=== PATIENT | male | born 1985 | race Caucasian/White ===

== ENCOUNTER 2017-12-26 10:34 | Emergency (ER) | payer OTHER, SELFPAY ==
[2017-12-26 10:38] VITALS: BP 135/90; PULSE 78; RESP 20; TEMP 36.6; O2SAT 100
--- NOTE | 2017-12-26 11:36 | ED.EYEPROB ---
HPI - Eye Problem General Chief complaint: Eye Problems Stated complaint: fingernail stuck in eyeball Time Seen by Provider: 12/26/17 10:42 Source: patient Mode of arrival: ambulatory Limitations: no limitations History of Present Illness HPI Narrative: 32-year-old nonsmoking male presents with a chief complaint a right eye injury suffered yesterday. His daughter was playing with him when her finger accidentally poked him in the right eye. He denies any bleeding or discharge. He denies any change in visual acuity. He denies the use of contacts and is otherwise well chief complaint: eye pain Onset (ago): hour(s) Onset description: sudden Duration: constant Location: right eye Eye Symptoms: burning and redness Place: home Mechanism: direct trauma Severity: mild If Pain, Quality: sharp Associated symptoms: none Treatments Prior to Arrival: none Related Data Patient tetanus UTD: Yes Home Medications Medication Instructions Recorded Confirmed chlorthalidone 12.5 mg PO DAILY 12/26/17 12/26/17 Previous Rx's Medication Instructions Recorded sulfacetamide sodium 1 drop EYE-RIGHT Q4H 7 Days #5 ml 12/26/17 Allergies Allergy/AdvReac Type Severity Reaction Status Date / Time No Known Drug Allergies Allergy Verified 12/26/17 10:38 Review of Systems Review of Systems All systems reviewed & are unremarkable except as noted in HPI and below Constitutional Denies chills, Denies fever(s), Denies lethargy and Denies weakness Eyes Denies change in vision, Denies eye discharge, Reports irritation and Denies loss of vision ENT Ears, Nose, Mouth, and Throat: Denies change in voice, Denies neck pain and Denies sore throat Cardiovascular Denies chest pain, Denies irregular heart rhythm, Denies lightheadedness, Denies palpitations, Denies dyspnea, Denies dyspnea on exertion and Denies orthopnea Respiratory Denies cough, Denies dyspnea, Denies dyspnea on exertion and Denies wheezing Gastrointestinal Gastrointestinal: Denies abdominal pain, Denies change in bowel habits, Denies diarrhea, Denies nausea and Denies vomiting Genitourinary Denies hematuria, Denies flank pain, Denies urinary incontinence and Denies urinary urgency Musculoskeletal Denies neck pain Integumentary/Breasts Denies pruritus, Denies erythema, Denies rash and Denies wounds Neurologic Denies confusion, Denies loss of vision and Denies weakness Psychiatric Denies anxiety, Denies confusion, Denies depression, Denies homicidal ideation and Denies suicidal ideation Endocrine Denies palpitations Hematologic/Lymphatic Denies easy bruising Allergic/Immunologic Denies wheezing PFSH Social History Smoking Status: Never smoker Exam Narrative Exam Narrative: GEN: AOx3 and in mild distress EYES: Pupils are equal, round, and reactive to light and accommodation. Extraoccular muscles are intact bilaterally. Right high scleral injection. Proparacaine instilled and then visualize with fluorescein under UV light and there is a corneal abrasion noted at the 9 o'clock position of the right without any foreign body noted. Patient had a complete resolution of symptoms after proparacaine CHEST: Lungs are clear to auscultation bilaterally and free of wheezes, rales, or rhonchi. Heart rate is regular rhythm, there are no murmurs, clicks, rubs, or gallops. There is no chest wall tenderness. ABD: Abdomen is soft and nontender. There is no guarding or rebound. Bowel sounds are normal in all 4 quadrants. There is no mass or organomegaly. EXT: Full painless ROM of all extremities with no loss of sensation or strength. SKIN: Warm, pink, and dry. No erythema or rash Initial Vital Signs Initial Vital Signs: Vital Signs Temperature 97.8 F 12/26/17 10:38 Pulse Rate 78 12/26/17 10:38 Respiratory Rate 20 12/26/17 10:38 Blood Pressure 135/90 12/26/17 10:38 Pulse Oximetry 100 12/26/17 10:38 Course Vital Signs - 8 hr 12/26/17 10:38 12/26/17 11:44 Temperature 97.8 F Pulse Rate 78 80 Respiratory Rate 20 20 Blood Pressure 135/90 128/93 H Pulse Oximetry 100 100 Discharge Plan Departure Patient Disposition: Home Clinical Impression: Abrasion, corneal Discharge Date/Time: 12/26/17 11:44 Interventions: ED Discharge Assessment Last Done: 12/26/17 11:44 Instructions: DI for Corneal Abrasion Activity Restrictions/Additional Instructions: *You have been diagnosed with [ Acute R corneal abrasion ] *What to do: *Take medications as directed: Your prescription has been electronically [facility] to [facility] at [facility] request *Follow up with your primary care provider in 2-3 days, call for an appointment. Let them know you were seen in the Emergency Department and that we ask that you be seen in follow up *Return to ER if you should have any new, worsening or concerning symptoms Prescriptions: New sulfacetamide sodium 10 % drops 1 drop EYE-RIGHT Q4H 7 Days Qty: 5 RF: 0 No Action chlorthalidone 25 mg tablet 12.5 mg PO DAILY RF: 0 Referrals: Mary Myrick [Primary Care Provider] -
[2017-12-26 11:44] VITALS: BP 128/93; PULSE 80; RESP 20; O2SAT 100
== END 2017-12-26 11:44 | disposition home or self-care (01) ==
PROVIDERS: Emergency Provider Emergency Medicine; PCP Physician Assistant Medical
DX: S05.01XA Injury of conjunctiva and corneal abrasion without foreign body, right eye, initial encounter (principal); W50.0XXA Accidental hit or strike by another person, initial encounter
CPT/HCPCS: 99283

== ENCOUNTER 2019-01-08 09:52 | Emergency (ER) | payer OTHER, SELFPAY ==
[2019-01-08 09:54] VITALS: BP 142/89; PULSE 82; RESP 16; TEMP 37.2; O2SAT 98
[2019-01-08 10:07] VITALS: BP 142/89; PULSE 82; RESP 16; TEMP 37.2; O2SAT 98
--- NOTE | 2019-01-08 10:08 | DI.RAD.S_ITS ---
PROCEDURE: XR CHEST 2V INDICATIONS: Cough and fever evaluate for pneumonia TECHNIQUE: 2 views of the chest were acquired. COMPARISON: CXR 09/21/2009. FINDINGS: Surgical changes and devices: None. Lungs and pleura: Lungs are clear. No pleural effusions or pneumothorax. Mediastinum: Mediastinal contours are normal and unchanged. Heart size is normal. Bones and chest wall: No suspicious bony abnormalities. Soft tissues appear unremarkable. IMPRESSION: No consolidation to suggest pneumonia. Dictated by: Rasta Husain M.D. on 01/08/2019 at 10:47 Approved by: Rasta Husain M.D. on 01/08/2019 at 10:48
--- NOTE | 2019-01-08 10:16 | ED_ITS ---
HPI - General Adult General Chief complaint: Upper Respiratory Symptoms Stated complaint: Coughing,Green [place] and [place]. Time Seen by Provider: 01/08/19 10:07 Source: patient Mode of arrival: Ambulatory Limitations: no limitations History of Present Illness HPI narrative: Otherwise healthy 33-year-old male here for evaluation approximately 4 weeks of fevers that have been controlled with Motrin and a productive cough and wheezing. Patient states he has been doing ibuprofen and Tylenol for the past 4 weeks for this. He states that his productive cough has been going on for 4 weeks. Has had chills and body aches. Approximately 2 days prior to the onset of symptoms he did travel to [place]. No chest pain. Related Data Home Medications Medication Instructions Recorded Confirmed chlorthalidone 12.5 mg PO DAILY 12/26/17 12/26/17 Previous Rx's Medication Instructions Recorded azithromycin See Rx Instructions .ROUTE 01/08/19 .COMPLEX #6 tab ibuprofen 800 mg PO Q8H PRN #60 tab 01/08/19 Allergies Allergy/AdvReac Type Severity Reaction Status Date / Time No Known Drug Allergies Allergy Verified 01/08/19 10:31 Review of Systems Constitutional Constitutional: Reports chills and Reports fever(s) Cardiovascular Cardiovascular: Denies chest pain and Reports dyspnea Respiratory Respiratory: Reports cough, Reports dyspnea and Reports wheezing Gastrointestinal Gastrointestinal: Denies abdominal pain, Denies nausea and Denies vomiting Musculoskeletal Musculoskeletal: Denies myalgias and Denies arthralgias Integumentary/Breasts Skin/Breast: Denies lesions and Denies rash Neurologic Neurologic: Denies behavioral changes Psychiatric Psychiatric: Denies behavioral changes Hematologic/Lymphatic Hematologic/Lymphatic: Denies easy bleeding and Denies easy bruising Allergic/Immunologic Allergic/Immunologic: Reports wheezing Patient History Medical History Healthy adult (Acute) Social History Smoking Status: Never smoker alcohol intake frequency: a few times a week Substance Use Type: does not use Exam Initial Vital Signs Initial Vital Signs: Vital Signs Temperature 99.0 F 01/08/19 09:54 Pulse Rate 82 01/08/19 09:54 Respiratory Rate 16 01/08/19 09:54 Blood Pressure 142/89 H 01/08/19 09:54 Pulse Oximetry 98 01/08/19 09:54 Const General: cooperative, comfortable and well developed Orientation: alert, awake and oriented x3 Chest Chest: normal inspection of the chest Resp Effort & Inspection: normal respiratory effort, cough, not labored and no retractions Auscultation: clear to auscultation bilaterally Cardio Rate: regular rate Rhythm: regular rhythm Skin Lesions: no lesions Rashes: no rashes Neuro General: alert, awake and oriented x3 Cognition: normal cognition Speech: speech normal Extrem General: normal to inspection and capillary refill normal Psych Appearance: grossly normal and well kempt Course Orders Ordered: ED Orders 01/08/19 10:08 XR chest 2V Stat Vital Signs Vital signs: Vital Signs - 8 hr 01/08/19 09:54 01/08/19 10:07 Temperature 99.0 F 99.0 F Pulse Rate 82 82 Respiratory Rate 16 16 Blood Pressure 142/89 H Blood Pressure [Right Arm] 142/89 H Pulse Oximetry 98 98 Medical Decision Making Imaging Data Chest x-ray: Radiologist's impression: [address] [address] XRay Report Signed Patient: Sudheer Pop [facility]#: [id number] : 1985Acct:[id number] Age/Sex: 33 / MDate of Service: 01/08/19 Loc: ED Accession Number: [id number] Procedure: XR chest 2V Ordering Provider: Patrice Vallejo D.O. PROCEDURE: XR CHEST 2V INDICATIONS: Cough and fever evaluate for pneumonia TECHNIQUE: 2 views of the chest were acquired. COMPARISON: CXR 09/21/2009. FINDINGS: Surgical changes and devices: None. Lungs and pleura: Lungs are clear. No pleural effusions or pneumothorax. Mediastinum: Mediastinal contours are normal and unchanged. Heart size is normal. Bones and chest wall: No suspicious bony abnormalities. Soft tissues appear unremarkable. IMPRESSION: No consolidation to suggest pneumonia. Dictated by: Rasta Husain M.D. on 01/08/2019 at 10:47 Approved by: Rasta Husain M.D. on 01/08/2019 at 10:48 [facility] Narrative Medical decision making narrative: Patient not in any respiratory distress. Has a low-grade fever however he has been on antipyretics. Does have a productive cough. Chest x-ray shows no definitive pneumonia however he has had 4 weeks of symptoms. I do feel was unreasonable to treat him as an atypical pneumonia and discharged him with antibiotics. We did discuss cough and cold preparations [id number]. We discussed return precautions. He expressed understanding and agreement plan. Discharge Plan Departure Patient Disposition: Home Clinical Impression: Atypical pneumonia Instructions: DI for Atypical Pneumonia Activity Restrictions/Additional Instructions: Take the antibiotics as directed. Return to the emergency department for any new or worsening symptoms Prescriptions: New azithromycin 250 mg tablet See Rx Instructions .ROUTE .COMPLEX Qty: 6 RF: 0 ibuprofen 800 mg tablet 800 mg PO Q8H PRN (Reason: pain) Qty: 60 RF: 0 No Action chlorthalidone 25 mg tablet 12.5 mg PO DAILY RF: 0 Referrals: Mary Myrick [Primary Care Provider] -
[2019-01-08 11:16] VITALS: BP 147/81; PULSE 74; RESP 18; O2SAT 97
== END 2019-01-08 11:20 | disposition home or self-care (01) ==
PROVIDERS: Emergency Provider Emergency Medicine; PCP Physician Assistant Medical
DX: J18.9 Pneumonia, unspecified organism (principal)
CPT/HCPCS: 71046; 99282; 99283

== ENCOUNTER 2019-11-06 11:06 | Emergency (ER) | payer OTHER, SELFPAY ==
[2019-11-06 11:17] VITALS: BP 166/100; PULSE 84; RESP 18; TEMP 36.7; O2SAT 97
--- NOTE | 2019-11-06 11:47 | ED.URI ---
HPI - URI/Sore Throat <GIULIANO Atkinson-BC - Last Filed: 11/06/19 12:44> General Chief Complaint: Upper Respiratory Symptoms Stated Complaint: sore throat,neckpain/ear pain,nausea,headache Time Seen by Provider: 11/06/19 11:20 Source: patient Mode of arrival: Family Vehicle Limitations: no limitations History of Present Illness HPI Narrative: The patient is a 34-year-old male current smoker with history of low testosterone who presents with a chief complaint of sore throat radiating to his ear and neck. This is been going on since Saturday, he had 2 days of metallic taste in his mouth with dentist currently gotten better. He denies any cough or shortness of breath. He has slight nausea today. He got coated testing from [facility] when his kids need to be retested to go back to school and states he tested negative on Saturday. [facility], he states that they gave him cough drops but did nothing else. He presents because he still has a sore throat. Otherwise he took ibuprofen yesterday. No fever. Eating and drinking well. Continuing to vape. No known sick contacts. Related Data Home Medications Medication Instructions Recorded Confirmed chlorthalidone 12.5 mg PO DAILY 12/26/17 12/26/17 Previous Rx's Medication Instructions Recorded azithromycin See Rx Instructions .ROUTE 01/08/19 .COMPLEX #6 tab ibuprofen 800 mg PO Q8H PRN #60 tab 01/08/19 ketorolac 10 mg PO TID PRN #15 tab 11/06/19 Allergies Allergy/AdvReac Type Severity Reaction Status Date / Time No Known Drug Allergies Allergy Verified 11/06/19 11:22 Review of Systems <THOM Atkinson - Last Filed: 11/06/19 12:44> Review of Systems Narrative: GENERAL: Denies chills, fatigue, malaise, fever, sweats. HEENT: See HPI RESPIRATORY: See HPI CARDIOVASCULAR: Denies chest pain, palpitations, orthopnea, edema, GASTROINTESTINAL: See HPI : Denies dysuria, frequency, incontinence, hematuria, urinary retention. MUSCULOSKELETAL: denies weakness, joint pain, or bony pain SKIN: Denies rash, skin lesions, or other NEUROLOGIC: Denies weakness, headache, numbness, change in speech, confusion, seizures, incoordination. PSYCHIATRIC: No concerning psychosocial issues. 12 point review of systems is negative except for those stated above Patient History <THOM Atkinson - Last Filed: 11/06/19 12:44> Medical History (Updated 11/06/19 @ 12:41 by THOM Atkinson) Healthy adult (Acute) Social History Smoking Status: Current every day smoker Smoking Status: Current every day smoker tobacco type: vaping alcohol intake frequency: a few times a week Alcohol type: beer and hard liquor Substance Use Type: does not use Exam <THOM Atkinson - Last Filed: 11/06/19 12:44> Narrative Exam Narrative: GENERAL: This is a well-nourished, well-developed patient, in no acute distress HEAD: Atraumatic. Normocephalic. No temporal or scalp tenderness. EYES: Pupils equal round and reactive. Extraocular motions intact. No scleral icterus. No injection or drainage. ENT: Nose without bleeding, purulent drainage or septal hematoma. Throat with erythema, but no tonsillar hypertrophy or exudate. Uvula midline. Airway patent. Bilateral TMs pearly mei. Bilateral ear canals within normal limits. NECK: Trachea midline. Slight anterior bilateral lymphadenopathy noted, no posterior lymphadenopathy a. Supple, nontender, no meningeal signs. CARDIOVASCULAR: Regular rate and rhythm RESPIRATORY: Clear to auscultation. Breath sounds equal bilaterally. No wheezes, rales, or rhonchi. No cough. No increased respiratory effort. No accessory muscle use. GASTROINTESTINAL: Abdomen soft, non-tender, nondistended. No hepato-splenomegaly, or palpable masses. No guarding. EXTREMITIES: No clubbing, cyanosis, or edema. No joint tenderness, effusion, or edema noted. BACK: Nontender without deformity or crepitance. No flank tenderness. NEURO: AOx3. SKIN: No rash or erythema. Initial Vital Signs Initial Vital Signs: Vital Signs Temperature 98.0 F 11/06/19 11:17 Pulse Rate 84 11/06/19 11:17 Respiratory Rate 18 11/06/19 11:17 Blood Pressure 166/100 H 11/06/19 11:17 Pulse Oximetry 97 11/06/19 11:17 <Mitul Yanes MD - Last Filed: 11/06/19 18:21> Initial Vital Signs Initial Vital Signs: Vital Signs Temperature 98.0 F 11/06/19 11:17 Pulse Rate 84 11/06/19 11:17 Respiratory Rate 18 11/06/19 11:17 Blood Pressure 166/100 H 11/06/19 11:17 Pulse Oximetry 97 11/06/19 11:17 Scores <THOM Atkinson - Last Filed: 11/06/19 12:44> GCS [place] coma scale eye opening: Spontaneous [place] coma scale verbal response: Orientated [place] coma scale motor response: Obey commands [place] coma scale total score: 15 Course <THOM Atkinson - Last Filed: 11/06/19 12:44> Orders Ordered: ED Orders 11/06/19 11:55 Throat Culture Stat Discontinued Medications Ketorolac Tromethamine (Toradol) 60 mg IM NOW ONE Stop: 11/06/19 12:10 Last Admin: 11/06/19 12:18 Dose: 60 mg Documented by: POLINA Vital Signs Vital signs: Vital Signs - 8 hr 11/06/19 11:17 11/06/19 12:53 Temperature 98.0 F Pulse Rate 84 78 Respiratory Rate 18 16 Blood Pressure 166/100 H 141/88 H Pulse Oximetry 97 97 <Mitul Yanes MD - Last Filed: 11/06/19 18:21> Orders Ordered: ED Orders 11/06/19 11:55 Throat Culture Stat Discontinued Medications Ketorolac Tromethamine (Toradol) 60 mg IM NOW ONE Stop: 11/06/19 12:10 Last Admin: 11/06/19 12:18 Dose: 60 mg Documented by: POLINA Vital Signs Vital signs: Vital Signs - 8 hr 11/06/19 11:17 11/06/19 12:53 Temperature 98.0 F Pulse Rate 84 78 Respiratory Rate 18 16 Blood Pressure 166/100 H 141/88 H Pulse Oximetry 97 97 MDM - URI/Sore Throat <THOM Atkinson - Last Filed: 11/06/19 12:44> Differential Diagnosis Differential diagnosis: Likely upper respiratory infection, otitis media, viral infection and pharyngitis Lab Data Labs: Point of Care Testing Rapid Strep A Negative MDM Narrative Medical decision making narrative: The patient is a 34-year-old male who presents with a chief complaint of a sore throat for a few days. He was seen and evaluated by [facility] yesterday. Today he test negative for strep. He has recently tested negative for coronavirus but also does not have any fever shortness of breath or cough. He feels much improved after the above-stated therapies, and I discussed sitting in a prescription of ketorolac and not combining with any other NSAIDs. We do have a throat culture pending and I discussed that we will call him in 2-3 days if anything comes up on those results. Encouraged follow-up with primary care provider in the next few days and coming back to the ER for acute concerns such as inability keep down fluids etcetera. Patient appears very well and nontoxic throughout his stay in the emergency department, hemodynamically stable and afebrile. <Mitul Yanes MD - Last Filed: 11/06/19 18:21> Lab Data Labs: Point of Care Testing Rapid Strep A Negative Discharge Plan Departure Patient Disposition: Home Clinical Impression: Pharyngitis Qualifiers: Pharyngitis/tonsillitis etiology: unspecified etiology Qualified Code(s): J02.9 - Acute pharyngitis, unspecified Discharge Date/Time: 11/06/19 12:54 Instructions: DI for Viral Pharyngitis Activity Restrictions/Additional Instructions: Thank you for trusting us with your care today I am sorry your feeling poorly and wish you a speedy recovery Today you tested negative for strep throat. We did take a throat culture to see if anything else develops. We will call you if something grows from throat culture. Please follow-up with primary care provider in the next few days. I sent a prescription of Toradol or ketorolac to [facility] I have given you a prescription of Toradol. This is an NSAID. Do not combine it with other NSAIDs such as Aleve or ibuprofen. I suggest taking it with some food, as it can irritate your stomach. As discussed please come back to the emergency department for any acute concerns such as inability keep down fluids etcetera Prescriptions: New ketorolac 10 mg tablet 10 mg PO TID PRN (Reason: pain) Qty: 15 RF: 0 No Action azithromycin 250 mg tablet See Rx Instructions .ROUTE .COMPLEX Qty: 6 RF: 0 ibuprofen 800 mg tablet 800 mg PO Q8H PRN (Reason: pain) Qty: 60 RF: 0 chlorthalidone 25 mg tablet 12.5 mg PO DAILY RF: 0 Referrals: Mary Myrick [Primary Care Provider] - <Mitul Yanes MD - Last Filed: 11/06/19 18:21> Cosign ED Attending Cosaniyaature Attestation: I was immediately available in the department for consultation. This documentation has been reviewed and I agree with assessment and plan. Supervised by Mitul Yanes MD
[2019-11-06] MEDS: KETOROLAC 60 MG/2 ML VIAL IM (12:18)
[2019-11-06 12:53] VITALS: BP 141/88; PULSE 78; RESP 16; O2SAT 97
== END 2019-11-06 12:54 | disposition home or self-care (01) ==
PROVIDERS: Emergency Provider Nurse Practitioner Family; PCP Physician Assistant Medical
DX: J02.9 Acute pharyngitis, unspecified (principal); R11.0 Nausea
CPT/HCPCS: 87070; 87077; 87880; 96372; 99283; J1885

== ENCOUNTER 2019-11-07 15:40 | Emergency (ER) | payer OTHER, SELFPAY ==
[2019-11-07 15:47] VITALS: BP 179/94; PULSE 86; RESP 16; TEMP 36.9; O2SAT 97; BMI 31.8
--- NOTE | 2019-11-07 16:06 | ED_ITS ---
HPI - URI/Sore Throat <SCOT AtkinsonBC - Last Filed: 11/07/19 17:23> General Chief Complaint: Upper Respiratory Symptoms Stated Complaint: States Step, Hard to Breath, White Spots on Throat Time Seen by Provider: 11/07/19 15:44 Source: patient Mode of arrival: Ambulatory Limitations: no limitations History of Present Illness HPI Narrative: The patient is a 34-year-old male current vapor with history of low testosterone who presents with a chief complaint of continued sore throat. For 4 days and feels as though it is getting worse and he thinks he has strep. He had a negative coronavirus test last week at [facility] and seen by myself in this emergency department yesterday. He denies any fevers nausea vomiting or diarrhea. He is eating and drinking well. He states that since yesterday he started having white drainage from the back of his throat. He tested negative for strep yesterday and a throat culture is pending. The patient states that he feels tired, but denies any muscle aches or chills. Related Data Home Medications Medication Instructions Recorded Confirmed chlorthalidone 12.5 mg PO DAILY 12/26/17 12/26/17 Previous Rx's Medication Instructions Recorded azithromycin See Rx Instructions .ROUTE 01/08/19 .COMPLEX #6 tab ibuprofen 800 mg PO Q8H PRN #60 tab 01/08/19 ketorolac 10 mg PO TID PRN #15 tab 11/06/19 amoxicillin 875 mg PO BID #20 tab 11/07/19 prednisone 40 mg PO DAILY 5 Days #10 tab 11/07/19 Allergies Allergy/AdvReac Type Severity Reaction Status Date / Time No Known Drug Allergies Allergy Verified 11/06/19 11:22 Review of Systems <THOM Atkinson - Last Filed: 11/07/19 17:23> Review of Systems Narrative: GENERAL: See HPI HEENT: See HPI RESPIRATORY: Denies dyspnea, cough, wheezing, hemoptysis, sputum. CARDIOVASCULAR: Denies chest pain, palpitations, orthopnea, edema, GASTROINTESTINAL: Denies nausea, vomiting, abdominal pain, diarrhea, constipation, melena. : Denies dysuria, frequency, incontinence, hematuria, urinary retention. MUSCULOSKELETAL: denies weakness, joint pain, or bony pain SKIN: Denies rash, skin lesions, or other NEUROLOGIC: Denies weakness, headache, numbness, change in speech, confusion, seizures, incoordination. PSYCHIATRIC: No concerning psychosocial issues. 12 point review of systems is negative except for those stated above Patient History <THOM Atkinson - Last Filed: 11/07/19 17:23> Medical History Healthy adult (Acute) Social History Smoking Status: Current every day smoker Smoking Status: Current every day smoker tobacco type: vaping alcohol intake frequency: a few times a week Alcohol type: beer and hard liquor Substance Use Type: does not use Exam <THOM Atkinson - Last Filed: 11/07/19 17:23> Narrative Exam Narrative: GENERAL: This is a well-nourished, well-developed patient, no acute distress HEAD: Atraumatic. Normocephalic. No temporal or scalp tenderness. EYES: Pupils equal round and reactive. Extraocular motions intact. No scleral icterus. No injection or drainage. ENT: Nose without bleeding, purulent drainage or septal hematoma. Throat with erythema and bilateral tonsillar exudate, no hypertrophy noted. Uvula midline. Airway patent. Bilateral TMs pearly mei. No abnormality bilaterally NECK: Trachea midline. Anterior lymphadenopathy bilaterally, no posterior lymphadenopathy. Supple, nontender, no meningeal signs. CARDIOVASCULAR: Regular rate and rhythm without murmurs, gallops, or rubs. RESPIRATORY: Clear to auscultation. Breath sounds equal bilaterally. No wheezes, rales, or rhonchi. GASTROINTESTINAL: Abdomen soft, non-tender, nondistended. No hepato- splenomegaly, or palpable masses. No guarding. Active bowel sounds all 4 quadrants. EXTREMITIES: Using all extremities equally. NEURO: AOx3. SKIN: No rash or erythema on visible skin Initial Vital Signs Initial Vital Signs: Vital Signs Temperature 98.5 F 11/07/19 15:47 Pulse Rate 86 11/07/19 15:47 Respiratory Rate 16 11/07/19 15:47 Blood Pressure 179/94 H 11/07/19 15:47 Pulse Oximetry 97 11/07/19 15:47 <Glenn Heart DO - Last Filed: 11/08/19 07:24> Initial Vital Signs Initial Vital Signs: Vital Signs Temperature 98.5 F 11/07/19 15:47 Pulse Rate 86 11/07/19 15:47 Respiratory Rate 16 11/07/19 15:47 Blood Pressure 179/94 H 11/07/19 15:47 Pulse Oximetry 97 11/07/19 15:47 Scores <THOM Atkinson - Last Filed: 11/07/19 17:23> GCS Grecia coma scale eye opening: Spontaneous [place] coma scale verbal response: Orientated Grecia coma scale motor response: Obey commands Grecia coma scale total score: 15 Course <THOM Atkinson - Last Filed: 11/07/19 17:23> Orders Ordered: ED Orders 11/07/19 16:02 COVID19 -ED/INPAT/OR/L&D Stat Vital Signs Vital signs: Vital Signs - 8 hr 11/07/19 15:47 11/07/19 16:46 Temperature 98.5 F Pulse Rate 86 69 Respiratory Rate 16 18 Blood Pressure 179/94 H 159/80 H Pulse Oximetry 97 97 <Glenn Heart DO - Last Filed: 11/08/19 07:24> Orders Ordered: ED Orders 11/07/19 16:02 COVID19 -ED/INPAT/OR/L&D Stat Vital Signs Vital signs: Vital Signs - 8 hr 11/07/19 15:47 11/07/19 16:46 Temperature 98.5 F Pulse Rate 86 69 Respiratory Rate 16 18 Blood Pressure 179/94 H 159/80 H Pulse Oximetry 97 97 MDM - URI/Sore Throat <THOM Atkinson - Last Filed: 11/07/19 17:23> Differential Diagnosis Differential diagnosis: Likely upper respiratory infection Lab Data Labs: Lab Results 11/07/19 Range/Units 16:02 COVID-19 PCR Negative (Negative) Point of Care Testing Rapid Strep A Negative MDM Narrative Medical decision making narrative: The patient is a 34-year-old male who presents with continued sore throat. There is a throat culture pending, has not resulted yet. The patient tests negative for strep a, though given his exam including peritonsillar exudate, I will start him on amoxicillin twice a day. I discussed at length taking this with probiotic or yogurt. Steroids also initiated. Patient declines anything for nausea, denies any chest pain or shortness of breath, has negative coronavirus test today. I encouraged him to follow up with primary care provider in the next few days, come back to the ER for acute concerns such as abdominal fever, inability keep down fluids, concern of heart attack or stroke. Patient has no questions or concerns upon discharge and states understanding return precautions as well as follow-up care. <Glenn Heart DO - Last Filed: 11/08/19 07:24> Lab Data Labs: Lab Results 11/07/19 Range/Units 16:02 COVID-19 PCR Negative (Negative) Point of Care Testing Rapid Strep A Negative Discharge Plan Departure Patient Disposition: Home Clinical Impression: Acute bacterial pharyngitis Discharge Date/Time: 11/07/19 16:46 Instructions: DI for Pharyngitis/Tonsillopharyngitis -- Adult Activity Restrictions/Additional Instructions: Thank you for trusting us with your care today. I am sorry that you are continuing to feel poorly and wish you a speedy recovery. I sent 2 prescriptions to [facility] on [email or web address]. One is an antibiotic given the change in your exam and the other is a steroid to help decrease inflammation and pain. As discussed, please take a probiotic or yogurt with the antibiotic. Please follow-up with primary care provider in the next few days. Please come back to the emergency department for any acute concerns such as abdominal pain with fever, concern of heart attack or stroke, inability keep down fluids Prescriptions: New prednisone 20 mg tablet 40 mg PO DAILY 5 Days Qty: 10 RF: 0 amoxicillin 875 mg tablet 875 mg PO BID Qty: 20 RF: 0 No Action azithromycin 250 mg tablet See Rx Instructions .ROUTE .COMPLEX Qty: 6 RF: 0 ibuprofen 800 mg tablet 800 mg PO Q8H PRN (Reason: pain) Qty: 60 RF: 0 ketorolac 10 mg tablet 10 mg PO TID PRN (Reason: pain) Qty: 15 RF: 0 chlorthalidone 25 mg tablet 12.5 mg PO DAILY RF: 0 Referrals: Mary Myrick [Primary Care Provider] - <Glenn Heart DO - Last Filed: 11/08/19 07:24> Cosign ED Attending Cosignature Attestation: I was immediately available in the department for consultation. This documentation has been reviewed and I agree with assessment and plan. Supervised by Glenn Heart, DO
[2019-11-07 16:25] LABS: COVID19 -Nasal RAPID Negative (Negative)
[2019-11-07 16:46] VITALS: BP 159/80; PULSE 69; RESP 18; O2SAT 97
== END 2019-11-07 16:46 | disposition home or self-care (01) ==
PROVIDERS: Emergency Provider Nurse Practitioner Family; PCP Physician Assistant Medical
DX: J02.8 Acute pharyngitis due to other specified organisms (principal)
CPT/HCPCS: 87635; 87880; 99282

== ENCOUNTER 2019-11-08 09:52 | Emergency (ER) | payer OTHER, SELFPAY ==
[2019-11-08 10:02] VITALS: BP 158/91; PULSE 91; RESP 18; TEMP 36.6; O2SAT 97; BMI 31.8
--- NOTE | 2019-11-08 10:03 | ED_ITS ---
HPI - URI/Sore Throat General Chief Complaint: Upper Respiratory Symptoms Stated Complaint: Throat issues since Saturday Time Seen by Provider: 11/08/19 09:53 Source: patient Mode of arrival: Ambulatory Limitations: no limitations History of Present Illness HPI Narrative: 34-year-old male nonsmoker with noncontributory medical history returns due to ongoing difficulty in swallowing due to throat pain. He has had multiple visits, initially at presentation was consistent with viral pharyngitis, he had negative strep swabs and yesterday was started on amoxicillin. He has had 2 doses of the amoxicillin but did not take the prednisone which was also prescribed. He feels fatigued and has a poor appetite. He denies any measured fever, chest pain or shortness of breath. MD Complaint: sore throat Onset (ago): day(s) Duration: constant Severity: moderate Relieving factors: nothing Exacerbating factors: swallowing Able to tolerate fluids by mouth: Yes Associated symptoms: denies other symptoms Treatments prior to arrival: acetaminophen, ibuprofen and antibiotics Related Data Home Medications Medication Instructions Recorded Confirmed chlorthalidone 12.5 mg PO DAILY 12/26/17 12/26/17 Previous Rx's Medication Instructions Recorded azithromycin See Rx Instructions .ROUTE 01/08/19 .COMPLEX #6 tab ibuprofen 800 mg PO Q8H PRN #60 tab 01/08/19 ketorolac 10 mg PO TID PRN #15 tab 11/06/19 amoxicillin 875 mg PO BID #20 tab 11/07/19 prednisone 40 mg PO DAILY 5 Days #10 tab 11/07/19 Allergies Allergy/AdvReac Type Severity Reaction Status Date / Time No Known Drug Allergies Allergy Verified 11/08/19 10:06 Review of Systems Constitutional Constitutional: Denies chills, Denies fatigue, Denies fever(s), Denies frequent falls, Denies lethargy and Denies weakness Eyes Eyes: Denies change in vision, Denies eye discharge, Denies irritation and Denies loss of vision ENT Ears, Nose, Mouth, and Throat: Denies change in voice, Denies dizziness, Denies neck pain, Reports sore throat and Denies throat swelling Cardiovascular Cardiovascular: Denies chest pain, Denies irregular heart rhythm, Denies lightheadedness, Denies palpitations, Denies dyspnea, Denies dyspnea on exertion and Denies orthopnea Respiratory Respiratory: Denies cough, Denies dyspnea, Denies dyspnea on exertion and Denies wheezing Gastrointestinal Gastrointestinal: Denies abdominal pain, Denies change in bowel habits, Denies diarrhea, Denies nausea and Denies vomiting Musculoskeletal Musculoskeletal: Denies neck pain and Denies numbness Integumentary/Breasts Skin/Breast: Denies pruritus, Denies erythema, Denies rash and Denies wounds Neurologic Neurologic: Denies behavioral changes, Denies confusion, Denies dizziness, Denies frequent falls, Denies loss of vision, Denies numbness and Denies weakness Psychiatric Psychiatric: Denies anxiety, Denies behavioral changes, Denies confusion, Denies depression, Denies homicidal ideation and Denies suicidal ideation Endocrine Endocrine: Denies fatigue, Denies flushing and Denies palpitations Hematologic/Lymphatic Hematologic/Lymphatic: Denies easy bruising Allergic/Immunologic Allergic/Immunologic: Denies urticaria, Denies throat swelling and Denies wheezing Patient History Medical History Healthy adult (Acute) Social History Smoking Status: Current every day smoker Smoking Status: Current every day smoker tobacco type: vaping alcohol intake frequency: a few times a week Alcohol type: beer and hard liquor Substance Use Type: does not use Exam Narrative Exam Narrative: GENERAL: [34] year old patient appears stated age. Well-nouris hed, well-developed patient, in mild distress. HEAD: Atraumatic. Normocephalic. EYES: Pupils equal round and reactive. Extraocular motions intact. No scleral icterus. No injection or drainage. ENT: Nose without bleeding, purulent drainage. Moderate posterior pharyngeal erythema, but no tonsillar hypertrophy or exudate. Airway patent. NECK: Trachea midline. Left eanterior node tender to palpation. No obvious or significant swelling CARDIOVASCULAR: Regular rate and rhythm without murmurs, gallops, or rubs. RESPIRATORY: Clear to auscultation. Breath sounds equal bilaterally. No wheezes, rales, or rhonchi. GASTROINTESTINAL: Abdomen soft, non-tender, nondistended. EXTREMITIES: No edema or joint tenderness. BACK: Nontender without deformity or crepitance. No flank tenderness. NEURO: AOx3. SKIN: No rash or erythema of visible areas Initial Vital Signs Initial Vital Signs: Vital Signs Temperature 97.8 F 11/08/19 10:02 Pulse Rate 91 H 11/08/19 10:02 Respiratory Rate 18 11/08/19 10:02 Blood Pressure 158/91 H 11/08/19 10:02 Pulse Oximetry 97 11/08/19 10:02 Course Course Course Narrative: Patient feeling much better after above-stated therapies. Viral cultures sent, return precautions given. Questions answered to apparent satisfaction Orders Ordered: ED Orders 11/08/19 11:05 Basic Metabolic Panel Stat C-Reactive Protein Quant Stat Complete Blood Count AUTO DIFF Stat Discontinued Medications Dexamethasone (Decadron) 10 mg IV NOW ONE Stop: 11/08/19 10:42 Last Admin: 11/08/19 11:16 Dose: 10 mg Documented by: LUISA Sodium Chloride (Normal Saline 0.9%) 1,000 mls @ 1,000 mls/hr IV BOLUS ONE Stop: 11/08/19 11:40 Last Infusion: 11/08/19 12:45 Dose: 0 mls/hr Documented by: Admin: 11/08/19 11:15 Dose: 1,000 mls/hr Documented by: LUISA Ampicillin Sodium/Sulbactam (Sodium 3 gm/ Sodium Chloride) 100 mls @ 100 mls/hr IV NOW ONE Stop: 11/08/19 10:51 Last Infusion: 11/08/19 12:45 Dose: 0 mls/hr Documented by: Admin: 11/08/19 11:15 Dose: 100 mls/hr Documented by: LUISA Sodium Chloride (Normal Saline 0.9%) 1,000 mls @ 1,000 mls/hr IV BOLUS ONE Stop: 11/08/19 13:51 Last Infusion: 11/08/19 13:59 Dose: 0 mls/hr Documented by: Admin: 11/08/19 12:57 Dose: 1,000 mls/hr Documented by: SETH Ketorolac Tromethamine (Toradol) 15 mg IV NOW ONE Stop: 11/08/19 10:51 Last Admin: 11/08/19 11:16 Dose: 15 mg Documented by: LUISA Vital Signs Vital signs: Vital Signs - 8 hr 11/08/19 10:02 11/08/19 11:32 11/08/19 13:56 Temperature 97.8 F 99.0 F Pulse Rate 91 H 80 83 Respiratory Rate 18 12 Blood Pressure 158/91 H 141/91 H 127/68 Pulse Oximetry 97 96 96 11/08/19 14:16 Temperature Pulse Rate 79 Respiratory Rate 12 Blood Pressure 139/78 Pulse Oximetry 96 MDM - URI/Sore Throat Lab Data Result diagrams: 11/08/19 11:05 11/08/19 11:05 Labs: Lab Results 11/08/19 11/08/19 Range/Units 11:05 11:05 WBC 6.1 (4.5-11.0) X10^3/uL RBC 5.26 (4.5-5.9) X10^6/uL Hgb 16.6 (13.5-17.5) g/dL Hct 47.8 (41-53) % MCV 90.9 (80-100) fL MCH 31.6 (26-34) PG MCHC 34.8 (30-36) % RDW 12.8 (11.6-14.8) % Plt Count 172 (150-400) X10^3/uL Neut % (Auto) 70.2 (50-75) % Lymph % (Auto) 19.1 L (25-40) % [place] % (Auto) 9.5 (3-14) % Eos % (Auto) 0.7 L (2-4) % Baso % (Auto) 0.5 (0-2) % Neut # (Auto) 4300 (0611-7100) /uL Lymph # (Auto) 1200 (3453-7655) /uL [place] # (Auto) 600 (0-900) /uL Eos # (Auto) 0 (0-450) /uL Baso # (Auto) 0 (0-100) /uL Sodium 140 (137-145) mmol/L Potassium 4.6 (3.4-5.1) mmol/L Chloride 104 (98-107) mmol/L Carbon Dioxide 31 (22-32) mmol/L BUN 11 (9-20) mg/dL Creatinine 1.02 (0.66-1.25) mg/dL Estimated GFR > 60.0 (>60) mL/min BUN/Creatinine Ratio 10.8 (6-22) Glucose 102 H (70-100) mg/dL Calcium 9.3 (8.4-10.2) mg/dL C-Reactive Protein < 0.5 (<1.0) mg/dL Discharge Plan Departure Patient Disposition: Home Clinical Impression: Pharyngitis Qualifiers: Pharyngitis/tonsillitis etiology: unspecified etiology Qualified Code(s): J02.9 - Acute pharyngitis, unspecified Discharge Date/Time: 11/08/19 14:18 Instructions: DI for Pharyngitis/Tonsillopharyngitis -- Adult Activity Restrictions/Additional Instructions: *You have been diagnosed with [acute pharyngitis] *What to do: *Take medications as directed. Drink plenty of fluids. GET REST. *Follow up with your primary care provider in 2-3 days, call for an appointment. Let them know you were seen in the Emergency Department and that we ask that you be seen in follow up *Return to ER if you should have any new, worsening or concerning symptoms Prescriptions: No Action azithromycin 250 mg tablet See Rx Instructions .ROUTE .COMPLEX Qty: 6 RF: 0 ibuprofen 800 mg tablet 800 mg PO Q8H PRN (Reason: pain) Qty: 60 RF: 0 ketorolac 10 mg tablet 10 mg PO TID PRN (Reason: pain) Qty: 15 RF: 0 chlorthalidone 25 mg tablet 12.5 mg PO DAILY RF: 0 prednisone 20 mg tablet 40 mg PO DAILY 5 Days Qty: 10 RF: 0 amoxicillin 875 mg tablet 875 mg PO BID Qty: 20 RF: 0 Referrals: Mary Myrick [Primary Care Provider] -
[2019-11-08 11:14] LABS: Add Manual Diff / Slide Review NO; Basophils Absolute Auto 0 /uL (0-100); Basophils Percent Auto 0.5 % (0-2); Eosinophils Absolute Auto 0 /uL (0-450); Eosinophils Percent Auto 0.7 % (2-4); Hematocrit 47.8 % (41-53); Hemoglobin 16.6 g/dL (13.5-17.5); Lymphocytes Absolute Auto 1200 /uL (1100-4500); Lymphocytes Percent Auto 19.1 % (25-40); Mean Corpuscular HGB Conc 34.8 % (30-36); Mean Corpuscular Hemoglobin 31.6 PG (26-34); Mean Corpuscular Volume 90.9 fL (80-100); Monocytes Absolute Auto 600 /uL (0-900); Monocytes Percent Auto 9.5 % (3-14); Neutrophils Absolute Auto 4300 /uL (1500-7000); Neutrophils Percent Auto 70.2 % (50-75); Platelet Count 172 X10^3/uL (150-400); Red Blood Cell Count 5.26 X10^6/uL (4.5-5.9); Red Cell Distribution Width 12.8 % (11.6-14.8); White Blood Cell Count 6.1 X10^3/uL (4.5-11.0)
[2019-11-08] MEDS: SODIUM CHLORIDE 0.9% 1,000 ML 1000 ML IV ×2 (11:15→12:57)
[2019-11-08] MEDS: AMPICILLIN/SULBACTAM 3 GM 3 GM in SODIUM CHLORIDE 0.9% 100 ML IV (11:15)
[2019-11-08] MEDS: DEXAMETHASONE 10 MG/ML VIAL IV (11:16)
[2019-11-08] MEDS: KETOROLAC 60 MG/2 ML VIAL 15 MG IV (11:16)
[2019-11-08 11:26] LABS: BUN Creatinine Ratio 10.8 (6-22); Blood Urea Nitrogen 11 mg/dL (9-20); Calcium 9.3 mg/dL (8.4-10.2); Carbon Dioxide 31 mmol/L (22-32); Chloride 104 mmol/L (98-107); Estimated Glomerular Filt Rate > 60.0 mL/min (>60); Glucose 102 mg/dL (70-100); HEMOLYSIS 20 (0-50); Potassium 4.6 mmol/L (3.4-5.1); Sodium 140 mmol/L (137-145)
[2019-11-08 11:27] LABS: C-Reactive Protein Quant < 0.5 mg/dL (<1.0)
[2019-11-08 11:32] VITALS: BP 141/91; PULSE 80; RESP 12; TEMP 37.2; O2SAT 96
[2019-11-08 13:56] VITALS: BP 127/68; PULSE 83; O2SAT 96
[2019-11-08 14:16] VITALS: BP 139/78; PULSE 79; RESP 12; O2SAT 96
== END 2019-11-08 14:18 | disposition home or self-care (01) ==
PROVIDERS: Emergency Provider Emergency Medicine; PCP Physician Assistant Medical
DX: J02.9 Acute pharyngitis, unspecified (principal)
CPT/HCPCS: 36415; 80048; 85025; 86140; 87252; 96361; 96365; 96366; 96375; 99284; J0295; J1100; J1885

== ENCOUNTER 2019-11-10 00:42 | Emergency (ER) | payer OTHER, SELFPAY ==
[2019-11-10 00:48] VITALS: BP 171/94; PULSE 81; RESP 16; TEMP 37.4; O2SAT 97; BMI 31.8
--- NOTE | 2019-11-10 01:07 | ED_ITS ---
HPI - General Adult General Chief complaint: Ear Stated complaint: feels like a fever, left ear pain Time Seen by Provider: 11/10/19 00:50 Source: patient Mode of arrival: Ambulatory Limitations: no limitations History of Present Illness HPI narrative: Otherwise healthy 34-year-old male who is currently undergoing treatment with amoxicillin for a pharyngitis. Has been seen here 2 times within the past week for the sore throat. Has had multiple strep test that have been negative. Had a throat culture which was drawn at an earlier visit. Review that shows that it grew Haemophilus influenzae. Also has a viral culture that is pending. When he was here couple days ago he was given Decadron to the IV. He states he was told to not start the prednisone that he was given a prescription for until tomorrow because of the Decadron that he received in the emergency department. He states he has been taking the amoxicillin as directed. Is here for evaluation because he states he was woken up this evening with severe left ear pain. He states that it feels like his ears: Explode. Is also radiating down to his draw. No problems breathing. No problems swallowing. He states that the pain left side of his neck and his throat seems to be improving somewhat from the onset of the symptoms a couple days ago. Took Tylenol prior to arrival otherwise no other interventions. Related Data Home Medications Medication Instructions Recorded Confirmed chlorthalidone 12.5 mg PO DAILY 12/26/17 12/26/17 Previous Rx's Medication Instructions Recorded azithromycin See Rx Instructions .ROUTE 01/08/19 .COMPLEX #6 tab ibuprofen 800 mg PO Q8H PRN #60 tab 01/08/19 ketorolac 10 mg PO TID PRN #15 tab 11/06/19 amoxicillin 875 mg PO BID #20 tab 11/07/19 prednisone 40 mg PO DAILY 5 Days #10 tab 11/07/19 Allergies Allergy/AdvReac Type Severity Reaction Status Date / Time No Known Drug Allergies Allergy Verified 11/08/19 10:06 Review of Systems Constitutional Constitutional: Reports fever(s) (Subjective) ENT Ears, Nose, Mouth, and Throat: Denies vertigo, Denies dizziness, Reports otalgia, Denies tinnitus, Denies sinus pressure, Reports sore throat and Denies tongue swelling Cardiovascular Cardiovascular: Denies chest pain and Denies dyspnea Respiratory Respiratory: Denies dyspnea Gastrointestinal Gastrointestinal: Denies abdominal pain, Denies nausea and Denies vomiting Integumentary/Breasts Skin/Breast: Denies lesions and Denies rash Neurologic Neurologic: Denies behavioral changes, Denies vertigo and Denies dizziness Psychiatric Psychiatric: Denies behavioral changes Hematologic/Lymphatic Hematologic/Lymphatic: Denies easy bleeding and Denies easy bruising Allergic/Immunologic Allergic/Immunologic: Denies tongue swelling Patient History Medical History Healthy adult (Acute) Social History Smoking Status: Current every day smoker Smoking Status: Current every day smoker tobacco type: vaping alcohol intake frequency: a few times a week Alcohol type: beer and hard liquor Substance Use Type: does not use Exam Initial Vital Signs Initial Vital Signs: Vital Signs Temperature 99.3 F 11/10/19 00:48 Pulse Rate 81 11/10/19 00:48 Respiratory Rate 16 11/10/19 00:48 Blood Pressure 171/94 H 11/10/19 00:48 Pulse Oximetry 97 11/10/19 00:48 Const General: cooperative and comfortable Limitations: mental status not altered HENMT Head: normal to inspection and normocephalic Ears: TM normal on the right, EAC's normal and TM abnormal bulging on the left, dull on the left and with fluid behind the TM on the left; not erythematous Nose: external nose normal Face and sinus: normal facial exam Teeth and gingiva: dentition normal Throat: uvula midline and other (Left-sided exudates) Neck Other: Fullness left-sided neck Skin Lesions: no lesions Rashes: no rashes Extrem General: normal to inspection and capillary refill normal Psych Appearance: grossly normal and well kempt Course Orders Ordered: Discontinued Medications Ketorolac Tromethamine (Toradol) 30 mg IM NOW ONE Stop: 11/10/19 01:08 Last Admin: 11/10/19 01:16 Dose: 30 mg Documented by: ANGELA Loratadine (Claritin) 10 mg PO NOW ONE Stop: 11/10/19 01:08 Last Admin: 11/10/19 01:15 Dose: 10 mg Documented by: ANGELA Oxymetazoline HCl (Afrin) 2 sprays NASAL NOW ONE Stop: 11/10/19 01:08 Last Admin: 11/10/19 01:15 Dose: 2 sprays Documented by: ANGELA Vital Signs Vital signs: Vital Signs - 8 hr 11/10/19 00:48 11/10/19 01:35 Temperature 99.3 F Pulse Rate 81 69 Respiratory Rate 16 16 Blood Pressure 171/94 H 161/88 H Pulse Oximetry 97 95 Medical Decision Making MDM Narrative Medical decision making narrative: No respiratory distress, tolerating his own secretions. His uvula is midline however he does seem to have somewhat more erythema on the left side of his throat compared to the right. Given his physical exam today I do have lower suspicion for peritonsillar absc ess/retropharyngeal abscess. Review of his throat culture show that it is Haemophilus influenzae. The amoxicillin he has taken should treat this infection. His viral cultures pending. Patient has obvious fluid behind the left tympanic membrane. The right side is unremarkable. Left side is not erythematous. I suspect that the swelling in his oropharynx is causing issues with his eustachian tube causing back up a fluid to his left ear causing his symptoms. I did discuss this with the patient. Informed him that unfortunately we would need to wait for the antibiotics to continue to working for him to start steroids tomorrow. He was given Toradol here in the ER. He is also given Claritin and Afrin. Potentially the decongestants will help with his symptoms as well. I do not feel the need to switch any antibiotics. I feel we can hold on any radiologic studies for now. Patient was given return precautions and follow-up instructions. He expressed understanding and agreement. Discharge Plan Departure Patient Disposition: Home Clinical Impression: Pharyngitis Qualifiers: Pharyngitis/tonsillitis etiology: other specified organisms Qualified Code(s): J02.8 - Acute pharyngitis due to other specified organisms Otitis media Qualifiers: Otitis media type: serous Chronicity: acute Laterality: left Recurrence: non- recurrent Qualified Code(s): H65.02 - Acute serous otitis media, left ear Discharge Date/Time: 11/10/19 01:35 Instructions: Middle Ear Infections (Alternative Therapy), Middle Ear Infection Activity Restrictions/Additional Instructions: Continue with the amoxicillin as directed. Recommend that tomorrow you start with the steroids as directed as well. I also recommend that you start on an [id number] decongestant such as Claritin. You were given a dose of this medication this evening. You can also use Afrin as well for the next 3 days as needed. Return to the emergency department for any new or worsening symptoms Prescriptions: No Action azithromycin 250 mg tablet See Rx Instructions .ROUTE .COMPLEX Qty: 6 RF: 0 ibuprofen 800 mg tablet 800 mg PO Q8H PRN (Reason: pain) Qty: 60 RF: 0 ketorolac 10 mg tablet 10 mg PO TID PRN (Reason: pain) Qty: 15 RF: 0 chlorthalidone 25 mg tablet 12.5 mg PO DAILY RF: 0 prednisone 20 mg tablet 40 mg PO DAILY 5 Days Qty: 10 RF: 0 amoxicillin 875 mg tablet 875 mg PO BID Qty: 20 RF: 0 Referrals: Mary Myrick [Primary Care Provider] -
[2019-11-10] MEDS: OXYMETAZOLINE NASAL SPRAY 30 ML 2 SPRAYS NASAL (01:15)
[2019-11-10] MEDS: LORATADINE 10 MG TABLET PO (01:15)
[2019-11-10] MEDS: KETOROLAC 60 MG/2 ML VIAL 30 MG IM (01:16)
[2019-11-10 01:35] VITALS: BP 161/88; PULSE 69; RESP 16; O2SAT 95
== END 2019-11-10 01:35 | disposition home or self-care (01) ==
PROVIDERS: Emergency Provider Emergency Medicine; PCP Physician Assistant Medical
DX: J02.8 Acute pharyngitis due to other specified organisms (principal); H65.02 Acute serous otitis media, left ear; R50.9 Fever, unspecified
CPT/HCPCS: 96372; 99283; J1885

== ENCOUNTER 2021-02-22 10:08 | Emergency (ER) | payer OTHER, SELFPAY ==
[2021-02-22 10:34] VITALS: BP 145/97; PULSE 80; RESP 14; TEMP 36.8; O2SAT 98; BMI 28.5
--- NOTE | 2021-02-22 10:52 | PC.NURSE ---
Reports symptoms now resolved, needs covid test for duty.
[2021-02-22 11:16] LABS: COVID19 -Nasal RAPID POSITIVE (Negative)
--- NOTE | 2021-02-22 11:20 | PC.NURSE ---
Lab called @ 1118, stated pt is Covid positive. advised.
--- NOTE | 2021-02-22 11:26 | ED.URI ---
HPI - URI/Sore Throat General Chief Complaint: Upper Respiratory Symptoms Stated Complaint: Chills, SOB, Fever, Headache, Sore throat Time Seen by Provider: 02/22/21 10:57 Source: patient Mode of arrival: Ambulatory History of Present Illness HPI Narrative: Otherwise healthy 35-year-old gentleman who has had fever cough chills loss of smell and taste for the past 4 days. His has had similar symptoms and their 2 children were sick approximately 3 days prior to that. He has a single [employer] vaccine. At this point he states that he is starting to feel somewhat better, still significantly fatigued minimally short of breath no fevers for the last 24 hours and presents for COVID testing. Related Data Home Medications Medication Instructions Recorded Confirmed chlorthalidone 25 mg tablet 12.5 mg PO DAILY 12/26/17 12/26/17 Previous Rx's Medication Instructions Recorded azithromycin 250 mg tablet See Rx Instructions .ROUTE 01/08/19 .COMPLEX #6 tab ibuprofen 800 mg tablet 800 mg PO Q8H PRN #60 tab 01/08/19 ketorolac 10 mg tablet 10 mg PO TID PRN #15 tab 11/06/19 amoxicillin 875 mg tablet 875 mg PO BID #20 tab 11/07/19 cefdinir 300 mg capsule 300 mg PO BID #20 cap 11/10/19 Allergies Allergy/AdvReac Type Severity Reaction Status Date / Time No Known Drug Allergies Allergy Verified 02/22/21 10:37 Review of Systems Review of Systems Narrative: Remainder of complete review of systems is otherwise unremarkable except for that included in the HPI. Patient History Medical History (Updated 02/22/21 @ 11:29 by Alaina De Jesus MD) Healthy adult Social History Smoking Status: Current every day smoker Smoking Status: Current every day smoker tobacco type: vaping alcohol intake frequency: a few times a week Alcohol type: beer and hard liquor Substance Use Type: does not use Exam Narrative Exam Narrative: General: Alert appropriate in no acute distress. Oxygen saturations at 96-98% at rest on room air Respiratory: Able to speak in full sentences, no obvious respiratory distress Skin: No obvious rashes, warm and dry Neurologic: Grossly intact no obvious asymmetries or abnormalities Psych: appropriate insight and affect, cooperative Initial Vital Signs Initial Vital Signs: Vital Signs Temperature 98.3 F 02/22/21 10:34 Pulse Rate 80 02/22/21 10:34 Respiratory Rate 14 02/22/21 10:34 Blood Pressure 145/97 H 02/22/21 10:34 Pulse Oximetry 98 02/22/21 10:34 Course Orders Ordered: ED Orders 02/22/21 10:35 COVID19 -Nasal swab/Pre-Proc Stat Vital Signs Vital signs: Vital Signs - 8 hr 02/22/21 10:34 Temperature 98.3 F Pulse Rate 80 Respiratory Rate 14 Blood Pressure 145/97 H Pulse Oximetry 98 MDM - URI/Sore Throat Lab Data Labs: Lab Results 02/22/21 Range/Units 10:35 SARS-CoV-2 (PCR) Positive H (Negative) MDM Narrative Medical decision making narrative: Otherwise healthy 35-year-old gentleman day for of COVID symptoms partially vaccinated with single [employer] vaccine. No comorbidities, no hypoxia. Reviewed most recent CBC recommendations for quarantine. His is not vaccinated reviewed signs and symptoms for her to present to the emergency department. They do have an oxygen monitor available at home. Questions are answered and he is safe for home discharge Discharge Plan Departure Patient Disposition: Home Clinical Impression: COVID-19 Instructions: DI for COVID-19 (Suspected or Confirmed ) Activity Restrictions/Additional Instructions: Thank you for coming in today You do have COVID. Please watch for oxygen saturations that are consistently below 94% at rest or below 90% with activity Ibuprofen and Tylenol can certainly help with the aches and pains. The fatigue does begin to improve after about a week. I wish you the best Prescriptions: No Action azithromycin 250 mg tablet See Rx Instructions .ROUTE .COMPLEX Qty: 6 0RF Rx Instructions: take 500 mg today (day 1), then 250 mg for 4 days (days 2-5) ibuprofen 800 mg tablet 800 mg PO Q8H PRN (Reason: pain) Qty: 60 0RF ketorolac 10 mg tablet 10 mg PO TID PRN (Reason: pain) Qty: 15 0RF chlorthalidone 25 mg tablet 12.5 mg PO DAILY 0RF amoxicillin 875 mg tablet 875 mg PO BID Qty: 20 0RF cefdinir 300 mg capsule 300 mg PO BID Qty: 20 0RF
[2021-02-22 12:15] VITALS: PULSE 85; RESP 18; O2SAT 98
== END 2021-02-22 12:16 | disposition home or self-care (01) ==
PROVIDERS: Emergency Provider Emergency Medicine
DX: U07.1 COVID-19 (principal); F17.290 Nicotine dependence, other tobacco product, uncomplicated
CPT/HCPCS: 87635; 99281; C9803

== ENCOUNTER → 2023-07-25 17:03 | Outpatient (ROUT) | payer OTHER, SELFPAY ==
[2023-07-25 17:13] LABS: Urine Drug Scr, Empl Non-NIDA See Separate Report
== END ==
DX: Z02.1 Encounter for pre-employment examination (principal)
CPT/HCPCS: 81099